=== PATIENT | female | born 1975 | race Two or more races ===

== ENCOUNTER 2019-07-10 09:02 | Emergency (ER) | payer OTHER ==
[~2019-07-10] VITALS: Ht 167.6 cm; Wt 65.8 kg
[2019-07-10] MEDS ORDERED: PROTONIX20 MG (09:17)
[2019-07-10] MEDS ORDERED: SYNTHROID50 MCG (09:17)
[2019-07-10] MEDS ORDERED: PEPCID20 MG (09:18)
[2019-07-10] MEDS ORDERED: LEVSIN0.125 MG (09:18)
== END 2019-07-10 21:08 | disposition home or self-care (01) ==
LOC: ER 09:02
DX: K52.89 Other specified noninfective gastroenteritis and colitis (principal); K82.4 Cholesterolosis of gallbladder; R19.7 Diarrhea, unspecified; R10.84 Generalized abdominal pain

== ENCOUNTER 2020-05-25 13:35 | Emergency (ER) | payer OTHER ==
[~2020-05-25] VITALS: Ht 152.4 cm; Wt 65.3 kg
[~2020-05-25 13:35] MED LIST: LEVSIN0.125 MG; PEPCID20 MG; PROTONIX20 MG; SYNTHROID50 MCG
[2020-05-25] MEDS ORDERED: ZITHROMAX500 MG PO (16:32)
== END 2020-05-25 16:34 | disposition home or self-care (01) ==
LOC: ER 13:35
DX: R42 Dizziness and giddiness (principal)

== ENCOUNTER 2020-07-20 12:43 | Outpatient (CLI) | payer OTHER ==
[~2020-07-20 12:43] MED LIST changes: +ZITHROMAX500 MG PO
== END 2020-07-20 13:40 | disposition home or self-care (01) ==
LOC: OFIC 805 12:43
PROVIDERS: ATTEND Otolaryngology Otology & Neurotology
DX: H81.03 Meniere's disease, bilateral (principal); H81.392 Other peripheral vertigo, left ear

== ENCOUNTER → 2020-10-10 | Outpatient (CLI) | payer OTHER | END | disposition home or self-care (01) | LOC: OFIC 805 08-17 13:00 | PROVIDERS: ATTEND Otolaryngology Otology & Neurotology | DX: R42 Dizziness and giddiness (principal) ==

== ENCOUNTER → 2022-11-06 | Outpatient (CLI) | payer OTHER | END | disposition home or self-care (01) | LOC: SONOGRAMA 12:12 | PROVIDERS: ATTEND Specialist | DX: R10.2 Pelvic and perineal pain (principal) ==

== ENCOUNTER 2023-11-18 13:35 | Emergency (ER) | payer OTHER ==
[~2023-11-18] VITALS: Ht 167.6 cm; Wt 78.5 kg
== END 2023-11-18 23:02 | disposition home or self-care (01) ==
LOC: ER 13:36
DX: L03.115 Cellulitis of right lower limb (principal); Z88.8 Allergy status to other drugs, medicaments and biological substances

== ENCOUNTER 2024-02-24 06:13 | Emergency (ER) | payer OTHER ==
[~2024-02-24] VITALS: Ht 167.6 cm; Wt 81.2 kg
[2024-02-24] MEDS ORDERED: MIDODRINE HCL2.5 MG PO (06:27)
[2024-02-24] MEDS ORDERED: SINGULAIR10 MG PO (06:27)
[2024-02-24] MEDS ORDERED: FAMOTIDINE/PF 20 MG/2 ML VIAL IV PUSH STA (06:51)
[2024-02-24] MEDS ORDERED: LACTOBACILLUS ACIDOPHILUS 1 CAP CAP PO STA (06:53)
[2024-02-24] MEDS ORDERED: POTASSIUM CHLORIDE/NACL 0.9% 1,000 ML IV ONE (07:00)
[2024-02-24] MEDS ORDERED: ONDANSETRON HCL 2 MG/ML VIAL IV STA (07:19)
[2024-02-24 07:44] LABS: HEMATOCRIT 38.9 % (36.0-45.00); HEMOGLOBIN 13.2 g/dL (12.0-15.00); MEAN CELL VOLUME 83.6 fL (80.00-100.00); MEAN CORPUSCULAR HEMOGLOBIN 28.5 pg (27.00-32.0); MEAN CORPUSCULAR HGB CONC 34.1 g/dl (32.0-36.0); PLATELET COUNT 195 K/uL (150-450); RED BLOOD COUNT 4.65 M/uL (4.00-6.00); RED CELL DISTRIBUTION WIDTH 13.7 % (11.5-14.5)
[2024-02-24 08:11] LABS: CALCIUM 8.6 mg/dL (8.5-10.1); CREATININE SERUM 0.68 mg/dL (0.55-1.02); GFR 92.74; POTASSIUM 3.32 mEq/L (3.5-5.1)
[2024-02-24 08:37] LABS: PH,URINE 6.5 (5.0-8.0); URINE APPEARANCE Clear; URINE BILIRRUBIN Negative (NEGATIVE); URINE BLOOD Negative; URINE COLOR Dark Yellow; URINE GLUCOSE Negative (NEGATIVE); URINE LEUKOCYTE Trace; URINE NITRATE Negative; URINE PROTEIN 30 (NEGATIVE)
[2024-02-24 08:41] LABS: URINE BACTERIA 366.6 uL (0.0-1933); URINE EPITHELIAL CELLS 40.9 uL (0.0-38.8); URINE RBC 36.2 uL (0.0-20.8); URINE WBC 10.8 uL (0.0-23.2)
[2024-02-24] MEDS ORDERED: METRONIDAZOLE/SODIUM CHLORIDE 500 MG/100 ML PIGGYBACK IV ONE (10:15)
[2024-02-24] MEDS ORDERED: DIPHENOXYLATE HCL/ATROPINE 1 UDTAB TABLET PO ONE (10:15)
[2024-02-24] MEDS ORDERED: OMEPRAZOLE40 MG PO (10:18)
[2024-02-24] MEDS ORDERED: METRONIDAZOLE500 MG PO (10:18)
[2024-02-24] MEDS ORDERED: LEVSIN/SL0.125 MG SL (10:18)
== END 2024-02-24 11:21 | disposition home or self-care (01) ==
LOC: ER 06:13
PROVIDERS: General Practice
DX: R19.7 Diarrhea, unspecified (principal); Z88.6 Allergy status to analgesic agent; Z88.8 Allergy status to other drugs, medicaments and biological substances; Z87.09 Personal history of other diseases of the respiratory system